=== PATIENT | female | born 1955 | race Caucasian/White ===

== ENCOUNTER → 2016-09-24 | Outpatient (CLI) | payer OTHER ==
[~2016-09-24] MED LIST: CALC-723 PO; FISH OIL500 M1 PO; METO25TA2 PO
--- NOTE | 2016-09-25 14:14 | Diagnostic Imaging Report ---
INDICATION: Screening mammogram. COMPARISON: 09/16/2015, 09/12/2014, and 11/04/2012. FAMILY HISTORY: Positive in a sister. TECHNIQUE: Bilateral digital mammography was performed with computer assisted detection (CAD) software utilization. FINDINGS: There are no reported clinical signs and/or symptoms of breast cancer. The breast tissue pattern is composed of a mild amount of radiographically dense breast tissue. No dominant mass, suspicious microcalcification, or other significant abnormality is identified. IMPRESSION: Negative for malignancy. Followup mammography in one year is recommended. ACR BI-RADS Category 1: Negative. Result letter will be mailed to the patient. Note: At least 10% of breast cancer is not imaged by mammography. Dictated by: Dictated on workstation # [id number]
== END ==
LOC: RAD 14:17
PROVIDERS: ATTEND Family Medicine
DX: Z12.31 Encounter for screening mammogram for malignant neoplasm of breast (principal)